=== PATIENT | male | born 1945 | race Caucasian/White ===

== ENCOUNTER 2016-08-12 16:23 | Emergency (ER) | payer MEDICARE ==
[~2016-08-12] VITALS: Ht 177.8 cm; Wt 100.0 kg
[2016-08-12 16:34] VITALS: Ht 177.8 cm; Wt 100.0 kg
[2016-08-12] MEDS ORDERED: GLUC1CAP35 PO (17:18)
[2016-08-12] MEDS ORDERED: ATOR-54 PO (17:18)
[2016-08-12] MEDS ORDERED: ASPI-560 PO (17:18)
[2016-08-12] MEDS ORDERED: LISI-725 PO (17:18)
[2016-08-12] MEDS ORDERED: METF-384 PO (17:18)
--- NOTE | 2016-08-12 17:40 | DIAGNOSTIC IMAGING REPORT ---
RIGHT HIP UNILATERAL 2 VIEWS CLINICAL HISTORY: right hip dislocation Right dislocation COMPARISON: None. DISCUSSION: Superior dislocation of the patient's femoral prosthetic in relation to the acetabular cup. There is no evidence for soft tissue swelling. IMPRESSION: Superior dislocation of the femoral prosthesis in relation to the acetabular cup. Electronically signed by: Yasmani Mixon M.D. 08/12/2016 5:38 PM Dictated Date/Time: 08/12/2016 5:37 PM
--- NOTE | 2016-08-12 17:40 | EMERGENCY ROOM VISIT NOTE ---
History Report prepared by Shar: Linda Henry Under the Supervision of: Dr. Ash Valencia M.D. First contact with patient: 17:10 Chief Complaint: HIP PAIN Stated Complaint: RIGHT HIP DISLOCATION (REPLACEMENT) History of Present Illness The patient is a 70 year old male who presents to the Emergency Room with complaints of a sudden right hip dislocation that occurred prior to arrival. The patient states that he was trying to put on his wading boots to go fishing and he bent over to pull the heel strap to get them on all the way when his hip dislocated. The patient has a prosthetic right hip, which was done 9 years ago. He has dislocated his hip in the past. The patient denies falling or any trauma that caused his hip to dislocate. He states that for previous reductions he was sedated and reduced in the ED. The patient denies any other symptoms including abdominal pain and urinary symptoms. The patient is visiting the area from [place] to go fishing with his friend. 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 Please see Additional Medical History Sheet. Past Medical & Surgical Surgical Problems: (1) History of right hip replacement Family History No pertinent family history Social History Smoking Status: Current Some Day Smoker Marital Status: Current/Historical Medications Scheduled Aspirin (Ecotrin), 325 MG PO QAM Atorvastatin (Lipitor), 20 MG PO HS Yikpdaqlain-Obhdtpauaog-Urf C- (Glucosamine Chondroitin), 1 CAP PO BID Lisinopril (Zestril), 20 MG PO QAM Metformin Hcl (Glucophage), 1,000 MG PO BID Allergies Coded Allergies: No Known Allergies (Unverified , 08/12/16) Physical Exam Vital Signs Date Time Temp Pulse Resp B/P Pulse Ox O2 Delivery O2 Flow Rate FiO2 08/12/16 19:38 84 98 08/12/16 19:30 162/105 08/12/16 19:25 137/102 08/12/16 19:23 96 98 08/12/16 19:21 126/78 08/12/16 19:15 143/82 08/12/16 19:10 144/80 08/12/16 19:08 84 99 08/12/16 19:05 133/82 08/12/16 19:00 137/79 08/12/16 18:55 122/79 08/12/16 18:54 95 27 133/73 99 Room Air 08/12/16 18:53 77 25 98 08/12/16 18:50 133/73 08/12/16 18:48 116/66 08/12/16 18:45 127/83 08/12/16 18:44 89 28 129/82 99 Nasal Cannula 2.0 08/12/16 18:43 129/82 08/12/16 18:39 96 18 145/71 100 Nasal Cannula 2.0 08/12/16 18:38 99 12 99 08/12/16 18:35 145/71 08/12/16 18:23 104 98 08/12/16 18:14 101 20 121/74 100 Room Air 08/12/16 18:11 99 Nasal Cannula 2.0 08/12/16 18:11 Room Air 08/12/16 18:10 98 08/12/16 18:08 100 99 08/12/16 18:06 94 20 121/74 99 Room Air 08/12/16 18:06 121/74 08/12/16 16:34 37.4 98 16 131/74 94 Room Air Physical Exam GENERAL: Patient awake, alert, oriented x 3. Patient follows commands. Patient does not appear toxic. Patient is adequately hydrated and well- nourished. SKIN: No erythema, pallor, cyanosis or rash HEENT: Normal head, pupils equal, reactive to light and accommodation. Ears normal. Oral cavity and posterior pharynx appear normal. Neck: Without adenopathy, no neck vein distention. LUNGS: Clear to auscultation. No wheezes, no rales, no rhonchi. HEART: No murmurs. No gallops. No rubs ABDOMEN: Soft, nontender. EXTREMITIES: Right leg shortened and externally rotated. Sensation and circulation intact. Motor function limited due to pain. No signs of trauma. No pedal or pretibial edema. No calf or thigh tenderness. NEUROLOGIC: Cranial nerves II-XII within normal limits. No gross motor sensory function deficits. Medical Decision & Procedures ER Provider Diagnostic Interpretation: X ray results are stated below per my interpretation and the radiologist's interpretation. RIGHT HIP UNILATERAL 2 VIEWS IMPRESSION: Superior dislocation of the femoral prosthesis in relation to the acetabular cup. Electronically signed by: Yasmani Mixon M.D. 08/12/2016 5:38 PM Dictated Date/Time: 08/12/2016 5:37 PM Procedure Procedural Sedation Indication Right Hip Dislocation. Total time: 12 minutes ([id number]) Written consent was obtained after the risks and benefits were explained to the patient, including, but not limited to aspiration, allergic reaction, breathing difficulties, cardiac complications, vomiting, pain, event recall, bleeding, and /or infection. Pre-sedation examination and paperwork completed. The patient was on 100% oxygen via NRB prior to the procedure. Continuous end tidal CO2 monitoring, pulse oximetry, and cardiac monitoring were utilized. Suction, airway equipment, medications, respiratory equipment, and appropriate personnel were prepared prior to the initiation of the procedure. A time out was taken. Sedation was achieved utilizing 150 mg of propofol in increments. After I observed the patient had reached the appropriate level of sedation the main procedure was performed without complication. Sedation was discontinued and the monitoring continued. The patient recovered quickly from the effects of the medication without complication or adverse event. Dr. Hernandez attempted reduction using the Captain Javon technique. Please refer to his note for further details. ED Course 1711: Past medical records reviewed. The patient was evaluated in room B7. A complete history and physical examination was performed. 1833: I explained the sedation procedure with the patient as well as the possible complications. He is in agreement and would like to have the procedure done. 1838: A time-out was taken at this time and then the procedural sedation and reduction began. 1850: The patient's hip reduction was unsuccessful. Orthopedic surgery is going to be contacted to discuss the patient's case. 1908: Discussed the patient's case with Dr. Coker - Orthopedic Surgery. He is going to evaluate the patient for further management. 1933: Dr. Coker is in the ED and he reviewed the patient's x-rays. 1941: Dr. Coker is going to evaluate the patient and take him to the operating room. Medical Decision Nurses notes reviewed. Medical history sheet reviewed. Differential diagnosis includes but is not limited to: hip fracture, hip dislocation, hip subluxation. X-rays reveal a superior dislocated right hip prosthesis. The patient underwent moderate sedation using propofol. I administered the medication while Dr. Hernandez attempted the reduction. Multiple attempts were unsuccessful at reducing the hip. Consultation was then obtained with Dr. Coker who also evaluated the patient the ED and ultimately took the patient to the OR for reduction. Consults Time Called: 1851 Consulting Physician: Dr. Coker - Orthopedic Surgery Returned Call: 1908 Discussed the patient's case with Dr. Coker - Orthopedic Surgery. He is going to evaluate the patient for further management. Impression Primary Impression: Dislocation of internal right hip prosthesis Scribe Attestation The scribe's documentation has been prepared under my direction and personally reviewed by me in its entirety. I confirm that the note above accurately reflects all work, treatment, procedures, and medical decision making performed by me. Departure Information Dispostion Being Evaluated By Surgeon Referrals No Doctor, Assigned (PCP) Patient Instructions My [facility] Problem Qualifiers Primary Impression: Dislocation of internal right hip prosthesis Encounter type: initial encounter Qualified Codes: T84.020A - Dislocation of internal right hip prosthesis, initial encounter
[2016-08-12 18:06] VITALS: BP 121/74; PULSE 94; O2SAT 99
[2016-08-12] MEDS ORDERED: PROPOFOL IV EMULSION 10 MG/ML 20 ML VIAL IV ONE ×3 (18:07→21:26)
[2016-08-12 18:39] VITALS: BP 145/71; PULSE 96; O2SAT 100
[2016-08-12 18:54] VITALS: BP 133/73; PULSE 95; O2SAT 99
[2016-08-12 19:38] VITALS: O2SAT 98
[2016-08-12] MEDS ORDERED: LIDOCAINE HCL 2% 2 ML VIAL (20MG/ML) ONE (20:18)
[2016-08-12] MEDS ORDERED: MIDAZOLAM HCL 1 MG/ML 2ML VIAL ONE (20:18)
--- NOTE | 2016-08-12 20:36 | History & Physical Bridge Note ---
H&P Re-Evaluation Bridge Note: I have examined the patient, reviewed the History & Physical and in the interval since the performance of the History & Physical I have noted the following changes of clinical significance: Right Total Hip Dislocation. Plan for Closed reduction Right RC under anesthesia. Full consult Dictated #[id number] Peter Coker DO
[2016-08-12] MEDS ORDERED: ROCURONIUM BROMIDE 10 MG/ML 5 ML VIAL ONE (20:40)
[2016-08-12] MEDS ORDERED: ONDANSETRON INJ 2 MG/ML 2 ML VIAL ONE (20:40)
[2016-08-12] MEDS ORDERED: SUCCINYLCHOLINE CHLORIDE 20 MG/ML 10 ML VIAL IV ONE (20:40)
--- NOTE | 2016-08-12 21:02 | [facility] Post Operative Brief Note ---
Immediate Operative Summary Operative Date Aug 12, 2016. Pre-Operative Diagnosis Right Total Hip Artroplasty Dislocation Post-Operative Diagnosis Right Total Hip Artroplasty Dislocation Procedure(s) Performed Closed Reduction Right Total Hip Arthroplasty Surgeon Dr. Coker Cloth Roll Winder Surgeon(s) None Estimated Blood Loss 0ml Findings See Dict Specimens None Drains None Anesthesia General Complication(s) None Disposition Recovery Room / PACU
--- NOTE | 2016-08-12 21:08 | DIAGNOSTIC IMAGING REPORT ---
RIGHT HIP OR FILMS CLINICAL HISTORY: CLOSED REDUCTION RIGHT HIP Rightdislocation COMPARISON STUDY: Right hip same date FLUOROSCOPY TIME: 5 seconds. FINDINGS: Operative reduction of previously described right hip dislocation IMPRESSION: Anatomic alignment status post closed reduction Electronically signed by: Yasmani Mixon M.D. 08/12/2016 9:06 PM Dictated Date/Time: 08/12/2016 9:06 PM
[2016-08-12] MEDS ORDERED: ACETAMINOPHEN 500 MG TAB PO ONE (21:15)
[2016-08-12] MEDS ORDERED: FENTANYL CITRATE INJ 50 MCG/1 ML 2 ML VIAL IV PRN (21:15)
[2016-08-12] MEDS ORDERED: ONDANSETRON INJ 2 MG/ML 2 ML VIAL IV PRN (21:15)
[2016-08-12] MEDS ORDERED: KETOROLAC TROMETHAMINE 30 MG/ML VIAL IV. PRN (21:15)
[2016-08-12] MEDS ORDERED: ACETAMINOPHEN 325 MG TAB PO PRN (21:15)
[2016-08-12] MEDS ORDERED: OXYCODONE HCL IR 5 MG TAB (IMMEDIATE RELEASE) PO PRN (21:15)
--- NOTE | 2016-08-12 21:16 | Discharge Instructions ---
Discharge Instructions Date of Service Aug 12, 2016. Admission Reason for Admission: Right Hip Dislocation (Replacement) Discharge Discharge Diagnosis / Problem: Right Hip Dislocation (Replacement) Discharge Goals Goal(s): Decrease discomfort, Improve function Activity Recommendations Activity Limitations: per Instructions/Follow-up section Lifting Limitations: no more than 25 pounds . Instructions / Follow-Up Instructions / Follow-Up ACTIVITY RECOMMENDATIONS: SELF CARE INSTRUCTIONS AFTER REDUCTION TOTAL HIP REPLACEMENT A. You may need to continue a physical therapy program after discharge from the hospital. There are several options available to you. Your doctor will assist you in selecting the best one for you. SEEK FOLLOW-UP APPOINTMENT WITH ORTHOPEDIC SURGERY [place] TO [place] B. MAINTAIN HIP PRECAUTIONS UNTIL SEEN BY ORTHO IN [place]. You may progress at your own pace from walking with a walker or crutches to a cane; then to no assistive devices. C. Make walking a part of your daily routine. Be up as much as comfortable with rest periods throughout the day. Use the ice wrap frequently for the first 2-3 weeks. D. MAINTAIN HIP PRECAUTIONS. You may ride in a car, shop, participate in SOME outpatient interviewing clerk. SPECIAL CARE INSTRUCTIONS: VERY IMPORTANT TO READ AND REVIEW . There are a few signs you need to watch for after you are home. Call [facility] if you notice any of the followin. Increased severe HIP pain. Some pain is expected especially when you exercise. 2. Increased swelling in your leg or knee; pain or swelling of the calf muscle in either lower leg. 3. Shortness of breath or chest pain. C. Please call [facility] at if you have any concerns or questions about your operation or recovery. The doctor or his nurse will return your call promptly. D. You must take antibiotics before dental work, bladder, bowel or other surgery. Your doctor will provide you with a permanent card to carry describing this precaution. * CALL IF INCREASED PAIN, REDNESS, DRAINAGE OR FEVER GREATER THAT 101 F. FOLLOW UP VISIT: If appointment is not already scheduled: Please call ORTHOPEDICS IN [place] or, [facility] to make a follow-up appointment . Current Hospital Diet Patient's current hospital diet: Discharge Diet Recommended Diet: Diabetes Type 2 Diet Procedures Procedures Performed: Closed Reduction Right Total Hip Arthroplasty Pending Studies Studies pending at discharge: no Medical Emergencies . Who to Call and When: Medical Emergencies: If at any time you feel your situation is an emergency, please call 911 immediately. . Non-Emergent Contact Non-Emergency issues call your: Surgeon Call Non-Emergent contact if: temperature is above 101, your pain is worsening . "Provider Documentation" section prepared by Hernando Coker. VTE Core Measure Inpt VTE Proph given/why not?: Other Anticoagulation (EC ASA 325mg PO daily)
[2016-08-12] MEDS ORDERED: KETOROLAC TROMETHAMINE 30 MG/ML VIAL ONE (21:19)
--- NOTE | 2016-08-12 21:34 | Anesthesiology Progress Note ---
Anesthesia Post Op Note Date & Time Aug 12, 2016 at 21:34 Vital Signs Pain Intensity: 4 Vital Signs Past 12 Hours Date Time Temp Pulse Resp B/P Pulse Ox O2 Delivery O2 Flow Rate FiO2 08/12/16 21:25 94 18 124/68 100 Mask 10 08/12/16 21:15 91 18 120/71 100 Mask 10 08/12/16 21:05 36.2 99 18 132/80 100 Mask 10 08/12/16 19:38 84 98 08/12/16 19:30 162/105 08/12/16 19:25 137/102 08/12/16 19:23 96 98 08/12/16 19:21 126/78 08/12/16 19:15 143/82 08/12/16 19:10 144/80 08/12/16 19:08 84 99 08/12/16 19:05 133/82 08/12/16 19:00 137/79 08/12/16 18:55 122/79 08/12/16 18:54 95 27 133/73 99 Room Air 08/12/16 18:53 77 25 98 08/12/16 18:50 133/73 08/12/16 18:48 116/66 08/12/16 18:45 127/83 08/12/16 18:44 89 28 129/82 99 Nasal Cannula 2.0 08/12/16 18:43 129/82 08/12/16 18:39 96 18 145/71 100 Nasal Cannula 2.0 08/12/16 18:38 99 12 99 08/12/16 18:35 145/71 08/12/16 18:23 104 98 08/12/16 18:14 101 20 121/74 100 Room Air 08/12/16 18:11 99 Nasal Cannula 2.0 08/12/16 18:11 Room Air 08/12/16 18:10 98 08/12/16 18:08 100 99 08/12/16 18:06 94 20 121/74 99 Room Air 08/12/16 18:06 121/74 08/12/16 16:34 37.4 98 16 131/74 94 Room Air Notes Mental Status: alert / awake / arousable, participated in evaluation Pt Amnestic to Procedure: Yes Nausea / Vomiting: adequately controlled Pain: adequately controlled Airway Patency, RR, SpO2: stable & adequate BP & HR: stable & adequate Hydration State: stable & adequate Anesthetic Complications: no major complications apparent Pt doing very well.
--- NOTE | 2016-08-12 21:53 | DIAGNOSTIC IMAGING REPORT ---
RIGHT PELVIS/UNILATERAL HIP 1 VIEW CLINICAL HISTORY: post-reduction Right dislocation COMPARISON: Earlier the same date DISCUSSION: Anatomic alignment status post closed reduction. No evidence for fracture. There is no evidence for soft tissue swelling. IMPRESSION: Anatomic alignment status post closed reduction Electronically signed by: Yasmani Mixon M.D. 08/12/2016 9:51 PM Dictated Date/Time: 08/12/2016 9:51 PM
[2016-08-12 22:08] VITALS: BP 132/78; PULSE 80; TEMP 36.2; O2SAT 98
--- NOTE | 2016-08-13 00:22 | ORTHOPEDIC CONSULTATION ---
DATE OF CONSULTATION: 08/12/2016 HISTORY OF PRESENT ILLNESS: This is a 70-year-old gentleman seen at the request of the Emergency Department for right closed total hip arthroplasty dislocation. The patient presented to Emergency Department after right hip dislocation. The patient is a visitor from [place], he was fishing on [employer]. He bent over to pull the heel strap to get on his wading boots and felt a clunk and pain in his right hip. Unable to ambulate. He was then transported to [facility] for care and management. The patient had a right total hip arthroplasty performed approximately 9 years ago in [place]. He dislocated this right hip a month ago, which was reduced in the Emergency Department after 3 attempts and deep sedation. The patient has no other pain or disability with the exception of the right hip. The patient denies numbness or tingling in the foot or leg. PAST MEDICAL HISTORY: Hypertension, hypercholesterolemia, diabetes mellitus. PAST SURGICAL HISTORY: Right total hip arthroplasty. ALLERGIES: No known drug allergies. MEDICATIONS: Ecotrin 325 mg p.o. daily, Lipitor 20 mg p.o. at bedtime, glucosamine chondroitin sulfate 1 capsule p.o. b.i.d., Zestril 20 mg p.o. q.a.m., and Glucophage 1000 mg p.o. b.i.d. SOCIAL HISTORY: He smokes occasionally. Drinks alcohol single drink per day. Denies drug use. He is . 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 He is from [place]. PHYSICAL EXAMINATION: GENERAL: This is a pleasant 70-year-old gentleman. He is well nourished, well hydrated, in no acute distress. EXTREMITIES: He has some discomfort in his right hip. He has obvious shortening of the right hip with external rotation of the right lower extremity. Dorsalis pedis and posterior tibial pulses 2/4 bilaterally. Unable to spontaneously move the right hip due to pain and discomfort. Radiographs demonstrate a superior posterior dislocation of the right total hip arthroplasty. The acetabular component appears to be intact. The femoral component appears to be intact. No obvious bone fractures evident. IMPRESSION: Right closed total hip arthroplasty dislocation. RECOMMENDATION: The patient will be taken to the operative suite for anesthesia and closed reduction of the right total hip arthroplasty. He will be then placed in a brace and then discharged back to his lodging in [facility] for return home for likely eventual revision of his right total hip arthroplasty. He should follow up with his orthopedic surgeon in [place] upon return home. Recommend against any further fishing due to the risk of possible further repetitive dislocation of the right hip. Wear the abduction brace at all times, just remove for toileting and cleansing and then place the brace back on. Maintain hip precautions. Thank you for the opportunity to consult in the care of this patient.
--- NOTE | 2016-08-13 00:38 | OPERATIVE REPORT ---
DATE OF OPERATION: 08/12/2016 PREOPERATIVE DIAGNOSIS: Right total hip arthroplasty dislocation. POSTOPERATIVE DIAGNOSIS: Same. PROCEDURE: Right closed total hip arthroplasty reduction. SURGEON: Dr. Coker. COOK BOX FILLER: None. ANESTHESIA: General. SPECIMENS: None. DRAINS: None. COMPLICATIONS: None. BLOOD LOSS: None. PERTINENT HISTORY: This is a 70-year-old gentleman who was trying to pull some hip waders on today. He is from [place], he was fishing at [employer]. He felt a pop and dislocation, seen in the Emergency Department. Emergency Department physicians attempted to reduce it on 2 occasions, failed to reduce the dislocation, consulted orthopedics, and at that time the patient was then scheduled to have the closed reduction in the OR as indicated. All potential risks, benefits, complications, alternatives, rehab, potential for incomplete relief of symptoms, need for further surgery, DVT, PE, , persistent pain, swelling, scarring, weakness, neurovascular injury, wound complications, hardware failure, hardware breakage, bones fracture were discussed with the patient. The patient decided to proceed with the procedure as indicated. PROCEDURE IN DETAIL: The patient was taken to the operative suite, placed supine on the operating table. After reviewing consent and identification of proper operative site, the patient was anesthetized and mask airway was maintained. Next, using gentle closed reduction technique, the right hip was then reduced into its acetabular component without difficulty. Confirmatory AP and lateral x-rays were obtained noting concentric reduction of the head within the acetabular component in the right hip. No bone fracture. Next, the patient was then awakened and taken to recovery in stable condition using an abduction pillow brace and hip precautions were maintained. I attest to the content of the Intraoperative Record and any orders documented therein. Any exceptio ns are noted below.
== END 2016-08-12 20:05 | disposition still patient (30) ==
LOC: C.EDB 16:25
DX: T84.020A Dislocation of internal right hip prosthesis, initial encounter (principal); X58.XXXA Exposure to other specified factors, initial encounter; Z96.641 Presence of right artificial hip joint; F17.200 Nicotine dependence, unspecified, uncomplicated; Z79.82 Long term (current) use of aspirin